=== PATIENT | male | born 1960 | race Caucasian/White ===

== ENCOUNTER 2018-03-20 22:39 | Inpatient (IN) | payer OTHER ==
[~2018-03-20] VITALS: Ht 182.9 cm; Wt 122.2 kg
--- NOTE | ~2018-03-20 | EKG ---
[place], [place] ELECTROCARDIOGRAM REPORT NAME: STEPHEN WEBB UNIT #: [id number] ROOM: 403 DOCTOR: LEX DRAFT REPORT BIRTHDATE: [birth year] [facility] Test Date: 2018-03-20 Test Time: 23:11:02 Pat Name: STEPHEN WEBB Department: Room: 403 Gender: M Lead Front Desk Agent: Sydnie White : 1960 Requested By: YAZMIN MONTALVO Order Number: [id number] Reading MD: Burke Black MD Measurements Intervals [place] Rate: 74 P: 3 SC: 160 QRS: -12 QRSD: 164 T: -26 QT: 434 QTc: 482 Interpretive Statements Sinus rhythm Right bundle branch block Artifact in lead(s) I,II,aVR,V1,V2 Electronically Signed On 03-21-2018 15:47:11 PST by Burke Black MD CM:EKGRPT:ELECTROCARDIOGRAM REPORT [id number] YAZMIN VICENTE DRAFT REPORT YAZMIN MONTALVO DO
[2018-03-20 00:50] VITALS: BP 137/77
[~2018-03-20 22:39] MED LIST: AUGMENTIN 500500 MG PO; BP MED; LISINOPRIL40 MG PO; MULTI-VITAMIN W1 TA2 PO; POTASSIUM GLUC550 M1 PO; VITAMIN D1000 IU PO; VITAMIN E200 UNI1 PO
[2018-03-20 22:45] VITALS: BP 136/74
[2018-03-20 23:17] LABS: BASO # 0.1 10*3/uL (0.0-0.1); BASO % 0.8 % (0.0-1.0); EOS # 0.3 10*3/uL (0.0-0.4); EOS % 3.7 % (1.0-4.0); HEMATOCRIT 41.7 % (42.0-52.0); HEMOGLOBIN 14.5 g/dl (14.0-18.0); LYMPH # 2.1 10*3/uL (1.3-4.4); LYMPH % 26.7 % (27.0-41.0); MEAN CELL VOLUME 91.4 fl (80.0-94.0); MEAN CORPUSCULAR HGB 31.8 pg (27.0-31.0); MEAN CORPUSCULAR HGB CONC 34.8 g/dl (33.0-37.0); MEAN PLATELET VOLUME 10.3 fl (9.6-12.3); MONO # 1.4 10*3/uL (0.1-1.0); MONO % 18.4 % (3.0-9.0); NEUT % 50.3 % (47.0-73.0); PLATELET COUNT AUTOMATED 352 10*3/uL (130-400); RED BLOOD COUNT 4.56 10*6/uL (4.50-5.90); WHITE BLOOD COUNT 7.8 10*3/uL (4.8-10.8)
[2018-03-20 23:33] LABS: ALBUMIN 3.3 gm/dl (3.1-4.5); ALKALINE PHOSPHATASE 96 U/L (45-117); BUN 20 mg/dl (7-24); CHLORIDE 103 mmol/L (98-107); POTASSIUM 3.5 mmol/L (3.5-5.1); SGOT/AST 18 IU/L (3-35); SGPT/ALT 21 U/L (12-78); SODIUM 137 mmol/L (136-145)
[2018-03-21 00:30] VITALS: BP 132/68
[2018-03-21 00:45] VITALS: BP 137/77
--- NOTE | 2018-03-21 00:45 | NUR ---
A 57, admitted to , under the services of MARIAH Saldivar DO with a diagnosis of SYNCOPE. Chief complaint is FEEL AT HOME DAUGHTER WITNESSED FALL SAID HE STOOD UP FROM COUCH AND WALKED TO THE KITCHEN AND STARTED TO HAVE MUSCLE CRAMPS IN HIS THIGHS AND THE PASSED OUT SOON AFTER THIS. PT. HIT HEAD PER FAMILY.. Patient arrived via stretcher from ER. Monitor applied. Initial assessment completed. Vital signs taken and recorded. MARIAH SALDIVAR DO notified of admission to the unit. Orders received. See assessment for past medical history, medications and allergies. Patient and/or family oriented to unit. [facility]. visitation policy reviewed. Clothing/patient valuable form completed. EULALIO DAMICO J
[2018-03-21] MEDS ORDERED: ATENOLOL100 M1 PO (01:01)
[2018-03-21] MEDS ORDERED: DOXAZOSIN4 MG PO (01:02)
[2018-03-21] MEDS ORDERED: LOSARTAN-HCTZ1 EAC1 PO (01:03)
[2018-03-21] MEDS ORDERED: AMLODIPINE BESY10 MG PO (01:04)
[2018-03-21] MEDS ORDERED: TAMSULOSIN HCL0.4 MG PO (01:06)
[2018-03-21] MEDS ORDERED: AUGMENTIN 875875 MG PO (01:08)
--- NOTE | 2018-03-21 02:28 | NUR ---
DR. CHESTER AWARE HOME MEDICATIONS HAVING BEEN RECONCILLED.
[2018-03-21 06:07] LABS: BASO # 0.1 10*3/uL (0.0-0.1); BASO % 0.9 % (0.0-1.0); EOS # 0.2 10*3/uL (0.0-0.4); EOS % 2.2 % (1.0-4.0); LYMPH # 2.3 10*3/uL (1.3-4.4); LYMPH % 30.2 % (27.0-41.0); MEAN CELL VOLUME 92.3 fl (80.0-94.0); MEAN CORPUSCULAR HGB 30.8 pg (27.0-31.0); MEAN CORPUSCULAR HGB CONC 33.3 g/dl (33.0-37.0); MEAN PLATELET VOLUME 10.6 fl (9.6-12.3); MONO # 1.2 10*3/uL (0.1-1.0); MONO % 15.5 % (3.0-9.0); NEUT % 50.9 % (47.0-73.0); PLATELET COUNT AUTOMATED 365 10*3/uL (130-400); RED BLOOD COUNT 4.55 10*6/uL (4.50-5.90); RED CELL DISTRI WIDTH 15.1 % (0-14.5); WHITE BLOOD COUNT 7.8 10*3/uL (4.8-10.8)
[2018-03-21 06:34] LABS: FREE T4 1.04 ng/dl (0.76-1.46)
[2018-03-21 06:39] LABS: THYROID STIM HORMONE (HS) 1.16 uIU/ml (0.358-4.75)
[2018-03-21 08:00] VITALS: BP 150/82
--- NOTE | 2018-03-21 08:05 | NUR ---
Shift chart check completed.
--- NOTE | 2018-03-21 09:00 | NUR ---
Psychology Associate in to talk to patient. Patient states lives at home with family. There are few steps in the home. Physician: miracle nuñez Pharmacy: [facility] Home health services: none Patient's level of ADLs: INDEPENDENT Patient has working utilities: all working DME: none Follow-up physician's appointment after d/c: will be made by hospitalist nurse director upon discharge Does patient want to access PORTAL?: no Discharge plan discussed with patient, patient lives at home with family, he is independent in adls and ambulation, works and drives, patient states he will be going home when able and denies any home needs. GHULAM VELAZQUEZ
--- NOTE | 2018-03-21 10:37 | NUR ---
STEPHEN WEBB [id number] Please refer to the physician's history and physical for past medical history, comorbid conditions, and allergies. Diagnosis: SYNCOPE Eliseo Score: 22,LOW OR NO RISK WOUND DESCRIPTIONS: Location of the wound: RIGHT LOWER ABD Thickness: Partial Size: 0.5cm X 9.5cm X 0.1cm Tunneling: NONE Undermining: NONE Sinus Tract: NONE Presence of Exudate: Serous Amount: Light Color: Red Odor: None Periwound Skin Appearance: Normal Wound edges: APPROXIMATED Pain (associated with wound): DENIED AT TIME OF ASSESSMENT How does patient state this happened? PATIENT STATES HE PASSED OUT AT HOME IN HIS BATHROOM AND GOT WEDGED BETWEEN THE WALL AND TOILET. PATIENT HAS PINK AREA TO UPPER RIGHT ABD MEASURING 0.1cm X 5.6cm X <0.1cm. NO DRAINAGE OR OPEN AREA NOTED. PATIENT DENIED PAIN AT TIME OF ASSESSMENT. Surface the patient is resting on: Isoflex SKIN PREVENTION RECOMMENDATION: 1. Pressure redistribution support surface as appropriate 2. Elevate heels 3. Remove boots/TEDS every shift and reapply 4. Head of bed 30 degrees as tolerated 5. Assess nutrition and hydration 6. Manage moisture 7. Avoid the use of containment devices while in bed 8. Use absorptive products on surfaces limit layers of linens on bed 9. Turn and reposition every 1-2 hours in bed and every 1 hour in chair as tolerated 10. Weight shifts every 15 minutes while up in chair 11. Offloading with pillows or device to keep heels elevated off bed 12. Monitor skin at least every shift 13. Inspect under medical devices twice a day WOUND TREATMENT RECOMMENDATIONS: DISCONTINUE SKIN TEAR GUIDELINES. PARTIAL THICKNESS GUIDELINES RIGHT LOWER ABDOMIN: CLEANSE WITH NSS APPLY SUREPREP AROUND THE WOUND AND ALLOW TO DRY. APPLY HYDROGEL AND COVER WITH ABD SECURED WITH PAPER TAPE.
[2018-03-21 12:00] VITALS: BP 142/79
--- NOTE | 2018-03-21 12:15 | NUR ---
HYDROGEL DRY DRESSING TO DISTAL RIGHT LOWER ABDOMEN, PROXIMAL RIGHT LOWER ABDOMEN WOUND, NOT OPEN/DRAINING AT THIS TIME
[2018-03-21 16:00] VITALS: BP 126/63
[2018-03-21] MEDS ORDERED: LOSARTAN POTASS50 M1 PO (16:53)
--- NOTE | 2018-03-21 18:28 | NUR ---
PT HAD ADMISSIONS PHOTOS DONE THIS MORNING, HE DOES NOT WANT DISCHARGE PHOTOS TAKEN. PT UNDERSTANDS WOUND CARE AND TO FOLLOW UP WITH PRIMARY CARE PHYSICIAN. DISCHARGE PAPERS SIGNED, PT UNDERSTANDS NEW MEDICATIONS AND FOLLOW UP CARE. NO QUESTIONS AT THIS TIME. IV REMOVED, TELE REMOVED
--- NOTE | 2018-03-21 19:12 | NUR ---
PT DISCHARGED VIA WHEELCHAIR.
== END 2018-03-21 19:12 | disposition home or self-care (01) | DRG 312 ==
LOC: ED 22:39 → EDHOLD 03-21 00:11 → 4E 03-21 00:11
PROVIDERS: Family Medicine; Student in an Organized Health Care Education/Training Program; ADMIT Internal Medicine
DX: R55 Syncope and collapse (principal); G44.319 Acute post-traumatic headache, not intractable; S70.211A Abrasion, right hip, initial encounter; J01.40 Acute pansinusitis, unspecified; R73.9 Hyperglycemia, unspecified; D64.9 Anemia, unspecified; D72.810 Lymphocytopenia; M25.551 Pain in right hip; I10 Essential (primary) hypertension; N40.0 Benign prostatic hyperplasia without lower urinary tract symptoms; W18.30XA Fall on same level, unspecified, initial encounter; Y93.89 Activity, other specified; Y92.098 Other place in other non-institutional residence as the place of occurrence of the external cause; Y99.8 Other external cause status; Z72.0 Tobacco use; Z71.6 Tobacco abuse counseling; Z90.81 Acquired absence of spleen; Z80.9 Family history of malignant neoplasm, unspecified; Z82.49 Family history of ischemic heart disease and other diseases of the circulatory system; Z83.3 Family history of diabetes mellitus; Z83.438 Family history of other disorder of lipoprotein metabolism and other lipidemia; Z79.899 Other long term (current) drug therapy

== ENCOUNTER → 2023-02-15 | Outpatient (CLI) | payer OTHER ==
[~2023-02-15] MED LIST changes: +AMLODIPINE BESY10 MG PO; +ATENOLOL100 M1 PO; +AUGMENTIN 875875 MG PO; +DOXAZOSIN4 MG PO; +LOSARTAN POTASS50 M1 PO; +LOSARTAN-HCTZ1 EAC1 PO; +TAMSULOSIN HCL0.4 MG PO
== END | disposition home or self-care (01) ==
LOC: RAD 12:37
PROVIDERS: ATTEND Nurse Practitioner Family
DX: R07.81 Pleurodynia (principal); M47.814 Spondylosis without myelopathy or radiculopathy, thoracic region

== ENCOUNTER → 2023-12-09 | Outpatient (CLI) | payer OTHER ==
[2023-12-09 10:14] LABS: BASO # 0.1 10*3/uL (0.0-0.1); BASO % 1.1 % (0.0-1.0); EOS # 0.2 10*3/uL (0.0-0.4); EOS % 2.9 % (1.0-4.0); HEMATOCRIT 45.6 % (42.0-52.0); LYMPH # 2.1 10*3/uL (1.3-4.4); LYMPH % 27.6 % (27.0-41.0); MEAN CELL VOLUME 91.6 fl (80.0-94.0); MEAN CORPUSCULAR HGB 30.5 pg (27.0-31.0); MEAN CORPUSCULAR HGB CONC 33.3 g/dl (33.0-37.0); MEAN PLATELET VOLUME 10.4 fl (9.6-12.3); MONO # 0.9 10*3/uL (0.1-1.0); MONO % 12.3 % (3.0-9.0); NEUT # 4.2 10*3/uL (2.3-7.9); NEUT % 55.8 % (47.0-73.0); PLATELET COUNT AUTOMATED 351 10*3/uL (130-400); RED BLOOD COUNT 4.98 10*6/uL (4.50-5.90); RED CELL DISTRI WIDTH 15.6 % (0-14.5); WHITE BLOOD COUNT 7.6 10*3/uL (4.8-10.8)
[2023-12-09 10:38] LABS: ALKALINE PHOSPHATASE 87 U/L (46-116); BUN 19 mg/dl (9-23); CHLORIDE 104 mmol/L (98-107); CHOLESTEROL 162 mg/dL (<200); LDL CHOLESTEROL 106 mg/dL (9-159); POTASSIUM 3.9 mmol/L (3.4-5.1); SGPT/ALT 18 U/L (5-49); TOTAL PROTEIN 7.4 gm/dL (6.0-8.0); TRIGLYCERIDES 97 mg/dl (<150)
== END | disposition home or self-care (01) ==
LOC: LAB 09:54
PROVIDERS: ATTEND Nurse Practitioner Family
DX: Z11.4 Encounter for screening for human immunodeficiency virus [HIV] (principal); Z11.59 Encounter for screening for other viral diseases; Z12.5 Encounter for screening for malignant neoplasm of prostate; E78.2 Mixed hyperlipidemia; I10 Essential (primary) hypertension; E66.9 Obesity, unspecified; R35.0 Frequency of micturition; R35.1 Nocturia; R73.03 Prediabetes; Z68.38 Body mass index [BMI] 38.0-38.9, adult

== ENCOUNTER → 2024-03-30 | Outpatient (CLI) | payer OTHER ==
[2024-03-30 09:34] LABS: BUN 21 mg/dl (9-23); CHLORIDE 104 mmol/L (98-107); POTASSIUM 4.1 mmol/L (3.4-5.1)
== END | disposition home or self-care (01) ==
LOC: LAB 08:26
PROVIDERS: ATTEND Student in an Organized Health Care Education/Training Program
DX: I50.9 Heart failure, unspecified (principal)